=== PATIENT | female | born 1970 | race Caucasian/White ===

== ENCOUNTER 2020-11-06 17:03 | Emergency (ER) | payer OTHER ==
[~2020-11-06] VITALS: Ht 165.1 cm; Wt 61.7 kg
[2020-11-06] MEDS ORDERED: PREMARIN30 GM TOP (17:21)
[2020-11-06] MEDS ORDERED: CELEXA 10 MG TA10 M1 PO (17:21)
[2020-11-06] MEDS ORDERED: CEPHALEXIN500 MG PO (18:00)
[2020-11-06 18:17] VITALS: BP 136/58
== END 2020-11-06 18:19 | disposition home or self-care (01) ==
LOC: M.ERS 17:03
DX: S01.511A Laceration without foreign body of lip, initial encounter (principal); Z90.710 Acquired absence of both cervix and uterus; W54.0XXA Bitten by dog, initial encounter; Y93.89 Activity, other specified; Y92.89 Other specified places as the place of occurrence of the external cause; Y99.8 Other external cause status

== ENCOUNTER 2020-11-13 16:19 | Emergency (ER) | payer OTHER ==
[~2020-11-13] VITALS: Ht 157.5 cm; Wt 56.7 kg
[~2020-11-13 16:19] MED LIST: CELEXA 10 MG TA10 M1 PO; CEPHALEXIN500 MG PO; PREMARIN30 GM TOP
[2020-11-13 17:21] VITALS: BP 119/66
== END 2020-11-13 17:23 | disposition home or self-care (01) ==
LOC: M.ERS 16:19
DX: S01.511D Laceration without foreign body of lip, subsequent encounter (principal); Z90.710 Acquired absence of both cervix and uterus; X58.XXXD Exposure to other specified factors, subsequent encounter

== ENCOUNTER 2020-11-18 10:12 | Emergency (ER) | payer OTHER ==
[~2020-11-18] VITALS: Ht 157.5 cm; Wt 56.7 kg
[2020-11-18] MEDS ORDERED: RAYOS5 MG PO (10:24)
[2020-11-18] MEDS ORDERED: AMOXICILLIN 50500 MG PO (10:25)
[2020-11-18 10:50] LABS: ABSOLUTE LYMPHOCYTES 2.7 thou/uL (0.8-5.3); ABSOLUTE MONOCYTES 1.2 thou/uL (0.0-1.2); ABSOLUTE NEUTROPHILS 12.5 thou/uL (1.6-8.1); BASOPHILS 0.2 %; EOSINOPHILS 0.1 %; HEMOGLOBIN 14.3 gm/dL (12.0-15.0); LYMPHOCYTES 16.3 %; MCH 30.5 pg (26.0-34.0); MCHC 33.2 g/dL (28.0-37.0); MCV 91.9 fL (80.0-100.0); MONOCYTES 7.3 %; MPV 6.5 fl. (7.2-11.1); NUCLEATED RBCS 0 /100WBC; PLATELET COUNT* 574 thou/uL (150-400); POLYS 76.1 %; RBC 4.68 mil/uL (4.20-5.00); WBC 16.3 thou/uL (4.0-11.0)
[2020-11-18 11:01] LABS: CALCIUM 9.1 mg/dL (8.5-10.1); CREATININE 0.6 mg/dL (0.6-1.3); POTASSIUM 3.7 mmol/L (3.5-5.1)
[2020-11-18 11:05] LABS: ALBUMIN 3.7 g/dL (3.4-5.0); MAGNESIUM 1.9 mg/dL (1.8-2.4); TOTAL BILIRUBIN 0.2 mg/dL (<0.1-1.0); TOTAL PROTEIN 7.7 g/dL (6.4-8.2)
[2020-11-18 12:07] VITALS: BP 106/38
--- NOTE | 2020-11-19 16:22 | EKG ---
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
== END 2020-11-18 12:08 | disposition home or self-care (01) ==
LOC: M.ERS 10:12
PROVIDERS: Emergency Medicine Emergency Medical Services
DX: R00.2 Palpitations (principal); T50.995A Adverse effect of other drugs, medicaments and biological substances, initial encounter; Y92.89 Other specified places as the place of occurrence of the external cause; Z90.710 Acquired absence of both cervix and uterus

== ENCOUNTER 2021-05-09 22:23 | Emergency (ER) | payer OTHER ==
[~2021-05-09] VITALS: Ht 157.5 cm; Wt 59.0 kg
[~2021-05-09 22:23] MED LIST changes: +AMOXICILLIN 50500 MG PO; +RAYOS5 MG PO
[2021-05-10 00:04] VITALS: BP 112/53
== END 2021-05-10 01:47 | disposition left against medical advice (07) ==
LOC: M.ERS 22:23
DX: R42 Dizziness and giddiness (principal); Z53.21 Procedure and treatment not carried out due to patient leaving prior to being seen by health care provider

== ENCOUNTER 2021-07-27 16:37 | Emergency (ER) | payer OTHER ==
[~2021-07-27] VITALS: Ht 157.5 cm; Wt 59.0 kg
[2021-07-27] MEDS ORDERED: APAP W/CODEINE1 TA2 PO (19:38)
[2021-07-27] MEDS ORDERED: ZPAK PO (19:38)
[2021-07-27] MEDS ORDERED: PROAIR HFA8.5 GM INH (19:38)
[2021-07-27 19:53] VITALS: BP 93/47
--- NOTE | 2021-07-28 09:44 | EKG ---
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: : 1970 Requested By: Anibal Wills Order Number: [id number] MD: Timothy Olmstead Measurements Intervals [place] Rate: 76 P: 71 MS: 154 QRS: 49 QRSD: 79 T: 61 QT: 380 QTc: 428 Interpretive Statements Sinus rhythm Compared to ECG 11/18/2020 10:20:03 No significant changes Electronically Signed On 07-28-2021 9:44:09 [employer] by Timothy Olmstead [email or web address] <ELECTRONICALLY SIGNED> By: Timothy Olmstaed MD, [facility] 07/28/2144 47 47 Timothy Olmstead MD, [facility] /EPI
== END 2021-07-27 19:53 | disposition home or self-care (01) ==
LOC: M.ERS 16:37
DX: R09.81 Nasal congestion (principal); Z20.822 Contact with and (suspected) exposure to COVID-19; R05.9 Cough, unspecified; R51.9 Headache, unspecified; F41.9 Anxiety disorder, unspecified; F32.9 Major depressive disorder, single episode, unspecified; R09.89 Other specified symptoms and signs involving the circulatory and respiratory systems; R53.83 Other fatigue; Z90.711 Acquired absence of uterus with remaining cervical stump; Z79.899 Other long term (current) drug therapy